=== PATIENT | male | born 1995 | race Caucasian/White ===

== ENCOUNTER 2024-01-12 14:16 | Emergency (ER) | payer MEDICAID ==
[~2024-01-12] VITALS: Ht 172.7 cm; Wt 73.5 kg
[2024-01-12 14:22] VITALS: BP 130/83; PULSE 91; RESP 18; TEMP 97.8; O2SAT 98
[2024-01-12] MEDS ORDERED: ketorolac trometh inj. 60 MG/2 ML VIAL IM ONE (14:25)
[2024-01-12] MEDS ORDERED: DOXY-224 PO (14:27)
[2024-01-12] MEDS ORDERED: NAPR-56 PO (14:27)
[2024-01-12] MEDS: ketorolac trometh. 30mg/ml inj. IM ONE (14:31)
== END 2024-01-12 14:37 | disposition home or self-care (01) ==
LOC: ER 14:17
DX: K04.7 Periapical abscess without sinus (principal)
CPT/HCPCS: 96372; 99283; J1885